=== PATIENT | male | born 1990 | race Caucasian/White ===

== ENCOUNTER 2016-06-24 13:54 | Emergency (ER) | payer BC ==
[~2016-06-24] VITALS: Ht 175.3 cm; Wt 100.0 kg
[2016-06-24] MEDS ORDERED: TEARS NATURALE30 ML BOTH EYES (15:19)
[2016-06-24] MEDS ORDERED: PREDNISONE20 MG PO (15:19)
[2016-06-24] MEDS ORDERED: VALTREX1000 MG PO (15:19)
[2016-06-24 15:24] VITALS: BP 129/91
== END 2016-06-24 15:26 | disposition home or self-care (01) ==
LOC: EME 13:54
DX: G51.0 Bell's palsy (principal)
CPT/HCPCS: 99281; 99283